=== PATIENT | female | born 1955 | race Caucasian/White ===

== ENCOUNTER 2016-09-09 01:14 | Day surgery (SDC) | payer OTHER ==
[~2016-09-09 01:14] MED LIST: CITA40TA13 PO; OMEP20TA86 PO; TRAZ-118 PO
[2016-09-09] MEDS ORDERED: Lidocaine Topical 2% 30 mL Jelly ONE (07:53)
== END 2016-09-09 23:59 | disposition home or self-care (01) ==
LOC: END 01:14
PROVIDERS: ATTEND Internal Medicine Gastroenterology
DX: K21.9 Gastro-esophageal reflux disease without esophagitis (principal); Z53.9 Procedure and treatment not carried out, unspecified reason

== ENCOUNTER 2016-11-11 09:51 | Day surgery (SDC) | payer OTHER ==
[~2016-11-11 09:51] MED LIST changes: +Lidocaine Topical 2% 30 mL Jelly ONE
== END 2016-11-11 23:59 | disposition home or self-care (01) ==
LOC: END 09:51
PROVIDERS: ATTEND Internal Medicine Gastroenterology
DX: K21.9 Gastro-esophageal reflux disease without esophagitis (principal)